=== PATIENT | female | born 1995 | race Caucasian/White ===

== ENCOUNTER 2020-07-27 14:20 | Inpatient (IN) ==
[2020-07-27 13:18] LABS: Adenovirus Not Detected (Not Detect); Bordetella Pertussis Not Detected (Not Detect); Chlamydophila pneumoniae Not Detected (Not Detect); Coronavirus 229E Not Detected (Not Detect); Coronavirus HKU1 Not Detected (Not Detect); Coronavirus NL63 Not Detected (Not Detect); Coronavirus OC43 Not Detected (Not Detect); Human Metapneumovirus Not Detected (Not Detect); Human Rhinovirus/Enterovirus Not Detected (Not Detect); Influenza A Subtype 2009 H1 Not Detected (Not Detect); Influenza B Not Detected (Not Detect); Mycoplasma pneumoniae Not Detected (Not Detect); Parainfluenza Virus 1 Not Detected (Not Detect); Parainfluenza Virus 2 Not Detected (Not Detect); Parainfluenza Virus 3 Not Detected (Not Detect); Parainfluenza Virus 4 Not Detected (Not Detect); Respiratory Syncytial Virus Not Detected (Not Detect); SARS-CoV-2 Not Detected (Not Detect)
[2020-07-27] MEDS: Oxytocin 20 units/ LR 1000 mL 20 UNIT/1,000 ML BAG IVC ONE ×2 (14:07→14:09)
[2020-07-27 14:10] LABS: Basophils # 0.1 K/mcL (0.0-0.2); Basophils % 0.7 %; Eosinophils # 0.2 K/mcL (0.0-0.6); Eosinophils % 1.2 %; Hemoglobin 12.3 g/dL (11.5-15.4); Immature Granulocytes % 0.4 % (0-4); Lymphocytes # 2.2 K/mcL (0.6-4.6); Lymphocytes % 16.4 %; Mean Corpuscular HGB Conc 30.8 g/dL (31.6-35.5); Mean Corpuscular Hemoglobin 26.7 pg (28.0-33.3); Mean Corpuscular Volume 86.8 fL (83.0-100.0); Mean Platelet Volume 11.3 fL (9.4-12.4); Monocytes # 0.7 K/mcL (0.0-1.3); Monocytes % 5.5 %; Platelet Count 307 K/mcL (140-400); Red Blood Count 4.61 M/mcL (3.82-4.97); Red Cell Distribution Width 13.7 % (11.5-14.5); Segmented Neutrophils % 75.8 %; White Blood Count 13.2 K/mcL (4.3-11.1)
[~2020-07-27 14:20] MED LIST: CeFAZolin Syr 3,000MG/30 ML 3,000 MG/30 ML SYRINGE IVPB ONE; EPHEDrine 50 MG/ML VIAL IVP PRN; Epidural Premix (fent/bupiv) 110 ML EP SCH; Famotidine 20 MG/2 ML VIAL IVP ONE; Methylergonovine 0.2 MG/ML AMPUL IM ONE; Metoclopramide 10 MG/2 ML VIAL IVP ONE; Oxytocin 20 units/ LR 1000 mL 20 UNIT/1,000 ML BAG IVC ONE; Ringers Solution, Lactated 1,000 ML IVC SCH
[2020-07-27] MEDS ORDERED: *HR* Morphine Sulfate/PF 10 MG/10 ML AMPUL ONE (14:48)
[2020-07-27] MEDS ORDERED: *HR* FentaNYL (PF) 100 MCG/2 ML VIAL ONE (14:49)
[2020-07-27] MEDS ORDERED: EPHEDrine 50 MG/ML VIAL ONE (14:49)
[2020-07-27] MEDS ORDERED: Ondansetron 4 MG/2 ML VIAL ONE (14:50)
[2020-07-27] MEDS ORDERED: *HR* Midazolam HCl 2 MG/2 ML VIAL ONE (14:50)
[2020-07-27] MEDS ORDERED: *HR* Oxytocin 10 UNIT/ML VIAL IM ONE (15:19)
[2020-07-27] MEDS ORDERED: Rho Immune Globulin 1,500 UNIT SYRINGE IM ONE (18:18)
[2020-07-27] MEDS ORDERED: Ondansetron 4 MG/2 ML VIAL IVP PRN (18:18)
[2020-07-27] MEDS ORDERED: Metoclopramide 10 MG/2 ML VIAL IVP PRN (18:18)
[2020-07-27] MEDS ORDERED: Sennosides 8.6 MG TABLET PO PRN (18:18)
[2020-07-27] MEDS ORDERED: Simethicone 80 MG TAB.CHEW PO PRN (18:18)
[2020-07-27] MEDS ORDERED: Oxytocin 20 units/ LR 1000 mL 20 UNIT/1,000 ML BAG IVC SCH ×2 (18:18)
[2020-07-27 18:32] LABS: Amphetamine Screen,Urine Negative ng/mL (Cutoff=1000); Barbiturate Screen,Urine Negative ng/mL (Cutoff=200); Benzodiazepines Screen,Urine Negative ng/mL (Cutoff=200); Cannabinoid Screen,Urine Negative ng/mL (Cutoff = 50); Cocaine Screen,Urine Negative ng/mL (Cutoff= 300); Opiate Screen,Urine Negative ng/mL (Cutoff=300); Phencyclidine Screen,Urine Negative ng/mL (Cutoff=25)
[2020-07-27] MEDS: Ibuprofen 600 MG TABLET PO PRN (19:59)
[2020-07-28] MEDS: Acetaminophen 325 MG TABLET PO PRN (01:09)
[2020-07-28 05:28] LABS: Basophils # 0.1 K/mcL (0.0-0.2); Basophils % 0.4 %; Eosinophils % 0.1 %; Hematocrit 32.3 % (35.3-44.9); Immature Granulocytes % 0.5 % (0-4); Lymphocytes # 2.4 K/mcL (0.6-4.6); Lymphocytes % 11.8 %; Mean Corpuscular HGB Conc 32.2 g/dL (31.6-35.5); Mean Corpuscular Hemoglobin 26.9 pg (28.0-33.3); Mean Corpuscular Volume 83.5 fL (83.0-100.0); Mean Platelet Volume 10.7 fL (9.4-12.4); Monocytes # 1.1 K/mcL (0.0-1.3); Monocytes % 5.2 %; Platelet Count 307 K/mcL (140-400); Red Blood Count 3.87 M/mcL (3.82-4.97); Red Cell Distribution Width 13.3 % (11.5-14.5)
[2020-07-28 05:29] LABS: Hemoglobin 10.4 g/dL (11.5-15.4); White Blood Count 20.7 K/mcL (4.3-11.1)
[2020-07-28] MEDS: Ibuprofen 600 MG TABLET PO PRN ×3 (08:33→22:50)
[2020-07-28] MEDS ORDERED: Prenatal Vit/FA 1 EACH TABLET PO SCH (09:00)
[2020-07-28] MEDS: *HR* Enoxaparin 60 MG/0.6 ML SYRINGE SQ SCH ×2 (12:13→22:53)
[2020-07-28] MEDS: metroNIDAZOLE 500 MG TABLET PO SCH ×2 (14:14→22:49)
[2020-07-28] MEDS: cephALEXin 500 MG CAPSULE PO SCH ×2 (14:14→22:49)
[2020-07-28] MEDS: *HR* OxyCODONE Immed Rel 5 MG TABLET PO PRN (22:50)
[2020-07-29 08:18] VITALS: BP 127/84
[2020-07-29] MEDS: cephALEXin 500 MG CAPSULE PO SCH (08:36)
[2020-07-29] MEDS: metroNIDAZOLE 500 MG TABLET PO SCH (08:37)
[2020-07-29] MEDS: *HR* OxyCODONE Immed Rel 5 MG TABLET PO PRN (08:38)
[2020-07-29] MEDS: Acetaminophen 325 MG TABLET PO PRN (08:39)
[2020-07-29] MEDS: Ibuprofen 600 MG TABLET PO PRN (08:39)
== END 2020-07-29 12:10 | disposition home or self-care (01) | DRG 788 ==
LOC: 1NENULAB → 1NENUOBS 18:35
PROVIDERS: ADMIT Student in an Organized Health Care Education/Training Program; ATTEND Student in an Organized Health Care Education/Training Program